=== PATIENT | male | born 1980 | race Caucasian/White ===

== ENCOUNTER 2023-11-04 03:40 | Emergency (ER) | payer SELFPAY ==
[~2023-11-04] VITALS: Ht 172.7 cm; Wt 73.0 kg
[2023-11-04 03:41] VITALS: BP 156/88; PULSE 118; RESP 15; TEMP 98.6; O2SAT 100
[2023-11-04] MEDS: SODIUM CHLORIDE 0.9% 1,000 ML IV ONE (04:17)
== END 2023-11-04 05:39 | disposition home or self-care (01) ==
LOC: ER 03:40
DX: R00.0 Tachycardia, unspecified (principal)
CPT/HCPCS: 99283; J7030